=== PATIENT | female | born 2000 | race Two or more races ===

== ENCOUNTER 2020-10-01 07:11 | Emergency (ER) | payer BC, OTHER ==
[~2020-10-01] VITALS: Ht 165.1 cm; Wt 63.5 kg
[2020-10-01 08:16] VITALS: BP 117/86
== END 2020-10-01 10:10 | disposition home or self-care (01) ==
LOC: ER 07:11
DX: S29.012A Strain of muscle and tendon of back wall of thorax, initial encounter (principal); S00.83XA Contusion of other part of head, initial encounter; Y04.8XXA Assault by other bodily force, initial encounter; Y93.89 Activity, other specified; Y92.89 Other specified places as the place of occurrence of the external cause; Y99.8 Other external cause status
CPT/HCPCS: 70486; 72070

== ENCOUNTER 2021-02-21 02:01 | Emergency (ER) | payer BC ==
[~2021-02-21] VITALS: Ht 165.1 cm; Wt 63.5 kg
[2021-02-21 04:38] VITALS: BP 127/88
[2021-02-21] MEDS ORDERED: NEOMYCIN-BACITRACIN-POLYM UNITDOSE PKG TOP OINT TOP ONE (04:45)
== END 2021-02-21 05:15 | disposition home or self-care (01) ==
LOC: ER 02:01
DX: S01.81XA Laceration without foreign body of other part of head, initial encounter (principal); F12.10 Cannabis abuse, uncomplicated; W22.8XXA Striking against or struck by other objects, initial encounter; Y93.89 Activity, other specified; Y92.89 Other specified places as the place of occurrence of the external cause; Y99.8 Other external cause status
CPT/HCPCS: 12013

== ENCOUNTER 2024-06-01 18:28 | Emergency (ER) | payer SELFPAY ==
[~2024-06-01] VITALS: Ht 165.1 cm; Wt 71.1 kg
--- NOTE | 2024-06-01 19:32 | ED.PDOC ---
Eye-HPI HPI Comments RT SIDED EAR PAIN AND POSTERIOR EAR PAIN SINCE YESTERDAY WORSE TODAY AFTER USING PEROXIDE 9/10 STABBING PAIN. DENIES FEVER, CHILLS, CHANGE IN HEARING, NAUSEA, VOMITING OR DIZZINESS. NO KNOWN TRAUMA Chief Complaint: Earache Time Seen by MD: 18:39 Primary Care Provider: NONE Reviewed Notes: Nurses Notes, Medications, Allergies Allergies: Coded Allergies: NO KNOWN ALLERGIES (Unverified , 06/01/24) Home Meds Active Scripts Moxifloxacin Hydrochloride (Moxifloxacin HCl) 0.5 % Farrah, 1 DROP RIGHT EAR TID for 7 Days, #3 ML Prov:TYRESE HOLLIDAY [facility] [employer] CHIE[employer] 06/01/24 Information Source: Patient Mode of Arrival: Ambulatory Past Medical History PAST MEDICAL HISTORY: Denies Surgical History: Denies all surgeries CASER IN History: Denies all CASER IN Hx Family History Family History: Reviewed,noncontributory to illness Social History Smoker: Non-Smoker Alcohol: Denies ETOH Use Drugs: Marijuana Lives In: Home Constitutional: denies: chills, diaphoresis, fatigue, fever, malaise, sweats, weakness, others EENTM: reports: eye pain; denies: blurred vision, double vision, ear bleeding, ear discharge, ear drainage, ear pain, ear ringing, eye redness, hearing loss, mouth pain, mouth swelling, nasal discharge, nose bleeding, nose congestion, nose pain, photophobia, tearing, throat pain, throat swelling, voice changes, others Respiratory: denies: cough, hemoptysis, orthopnea, SOB at rest, shortness of breath, SOB with excertion, stridor, wheezing, others Cardiovascular: denies: chest pain, dizzy spells, diaphoresis, Dyspnea on exertion, edema, irregular heart beat, left arm pain, lightheadedness, palpitations, PND, syncope, others Gastrointestinal: denies: abdomen distended, abdominal pain, blood streaked bowels, constipated, diarrhea, dysphagia, difficulty swallowing, hematemesis, melena, nausea, poor appetite, poor fluid intake, rectal bleeding, rectal pain, vomiting, others Genitourinary: denies: abnormal vagina bleeding, burning, dyspareunia, dysuria, flank pain, frequency, hematuria, incontinence, pain, , vagina discharge, urgency, others Neurological: denies: dizziness, fainting, headache, left sided numbness, left sided weakness, numbness, paresthesia, pre-existing deficit, right sided num bness, right sided weakness, seizure, speech problems, tingling, tremors, weakness, others Musculoskeletal: denies: back pain, gout, joint pain, joint swelling, muscle pain, muscle stiffness, neck pain, others Integumetry: denies: bruises, change in color, change in hair/nails, dryness, laceration, lesions, lumps, rash, wounds, others Allergic/Immunocompromised: denies: Difficulty Healing, Frequent Infections, Hives, Itching, others Hematologic/Lymphatic: denies: anemia, blood clots, easy bleeding, easy bruising, swollen glands, others Endocrine: denies: excessive hunger, excessive sweating, excessive thirst, excessive urination, flushing, intolerance to cold, intolerance to heat, unexplained weight gain, unexplained weight loss, others Psychiatric: denies: anxiety, bipolar disorder, depression, hopeless, panic disorder, schizophrenia, sleepless, suicidal, others Physical Exam General Appearance: No Apparent Distress, Normal HEENT: Pharynx Normal, TM Abnormal (R) (ERYTHEMA, SLIGHT BULGING, EAR CANAL WITH ERYTHEMA AND EDEMA NO NOTED DRAINAGE OF FOREIGN BODY WITHIN TYMPANIC MEM BRANE POSSIBLY HOLE IN MEMBRANE) Neck: Full Range of Motion, Non-Tender Respiratory: Lungs Clear, No Respiratory Distress, Normal Breath Sounds Cardiovascular: No Edema, No JVD, No Murmur, No Gallop, Normal Peripheral Pulses, Regular Rate/Rhythm Breast Exam: Deferred Gastrointestinal: No Organomegaly, Non Tender, No Pulsatile Mass, Normal Bowel Sounds, Soft Genitalia: Deferred Pelvic: Deferred Rectal: Deferred Extremities: Normal capillary refill, Normal inspection, Normal range of motion, Non-tender, No pedal edema Musculoskeletal : Apperance: Normal Neurologic: Alert, band master II-XII nml as Tested, No Motor Deficits, Normal Affect, Normal Mood, No Sensory Deficits Cerebellar Function: Normal Reflexes: Normal Skin: Dry, Normal Color, Warm Lymphatic: No Adenopathy Was a procedure done? Was a procedure done?: No EENT DIFF Eye: N/A Ear: Abrasion, Cerumen Impaction, Foreign Body, Otitis Externa, Otitis Media, Perforation X-Ray, Labs, Meds, VS Vital Signs Date Time Temp Pulse Resp B/P (MAP) Pulse Ox O2 Delivery O2 Flow Rate FiO2 06/01/24 19:54 87 18 98 Room Air 06/01/24 19:54 97.9 87 18 113/69 (84) 98 97.9 06/01/24 18:40 99.0 90 16 130/86 (101) 100 99.0 Current Medications Medications (Trade) Dose Ordered Sig/Angelo Route Start Time Stop Time Status Last Admin Dexamethasone Sodium Phosphate (Decadron Injection) 10 mg ONCE ONCE IM 06/01/24 19:45 06/01/24 19:46 DC 06/01/24 19:54 X-Ray, Labs, Meds, VS Comment MEMBRANE POSSIBLY WITH THE WHOLE PERFORATED TYMPANIC MEMBRANE WITH NOTED OTITIS EXTERNA. PATIENT GIVEN DECADRON 10 MG IM. SCRIPT MOXIFLOXACIN DROPS ADVISED TAKE DROPS PRESCRIBED SIDE EFFECTS DISCUSSED. ADVISED TO FOLLOW UP WITH PCP IN 2 DAYS FOR RE-EVALUATION OF THE EAR AND PLAN. ADVISED TO STOP USING HYDROGEN PEROXIDE TO THE EAR OR ANY OTHER CHEMICALS. ER RETURN PRECAUTIONS GIVEN PATIENT INDICATES UNDERSTANDING AGREES WITH DISCHARGE PLAN OF CARE. Time of 1ST Reevaluation: 20:50 Reevaluation 1ST: Improved Patient Education/Counseling: Diagnosis, Treatment, Prognosis, Need For Follow Up Family Education/Counseling: No Family Present Departure 1 Departure Time of Disposition: 19:36 Impression: Primary Impression: Otitis externa Qualified Codes: H60.501 - Unspecified acute noninfective otitis externa, right ear Disposition: HOME / SELF CARE / HOMELESS Condition: Stable e-Prescriptions Moxifloxacin Hydrochloride (Moxifloxacin HCl) 0.5 % Farrah 1 DROP RIGHT EAR TID for 7 Days, #3 ML Prov: TYRESE HOLLIDAY 06/01/24 Discharged With: Self Critical Care Note Critical Care Time?: No Stability Stability form required: TYRESE James Jun 01, 2024 19:32
[2024-06-01] MEDS ORDERED: MOXI0.5S3 RIGHT EAR (19:38)
[2024-06-01 19:54] VITALS: BP 113/69; PULSE 87; RESP 18; TEMP 97.9; O2SAT 98
[2024-06-01] MEDS: DexAMETHasone SOD PHOS 10MG/1ML VIAL INJ IM ONE (19:54)
[2024-06-02] MEDS ORDERED: COR10OTS OT (10:02)
== END 2024-06-01 20:44 | disposition home or self-care (01) ==
LOC: ER 18:28
DX: H60.91 Unspecified otitis externa, right ear (principal); F12.90 Cannabis use, unspecified, uncomplicated
CPT/HCPCS: 96372; 99283; J1100